=== PATIENT | female | born 1945 | race African-American/Black ===

== ENCOUNTER 2018-05-24 08:26 | Emergency (ER) | payer BC ==
[~2018-05-24] VITALS: Ht 154.9 cm; Wt 98.0 kg
[2018-05-24] MEDS ORDERED: FAMOTIDINE 20MG/2ML VIAL IV ONE (09:15)
[2018-05-24] MEDS ORDERED: DIPHENHYDRAMINE 50MG/ML VIAL IV ONE (09:15)
[2018-05-24] MEDS ORDERED: METHYLPREDNISOLONE SOD SUCC 125 MG/2 ML VIAL IV ONE (09:15)
[2018-05-24 10:54] VITALS: BP 140/84
== END 2018-05-24 10:55 | disposition home or self-care (01) ==
LOC: ER 08:26
DX: T78.1XXA Other adverse food reactions, not elsewhere classified, initial encounter (principal); I10 Essential (primary) hypertension; Z88.5 Allergy status to narcotic agent; Z88.0 Allergy status to penicillin; X58.XXXA Exposure to other specified factors, initial encounter
CPT/HCPCS: 96374; 96375; 99284; J1200; J2930; J3490; X7700

== ENCOUNTER 2018-12-27 18:02 | Emergency (ER) | payer BC ==
[~2018-12-27] VITALS: Ht 154.9 cm; Wt 100.0 kg
[2018-12-27] MEDS ORDERED: IBUPROFEN 600MG TABLET PO STA (19:13)
[2018-12-27 19:40] LABS: BASOPHILS % 0.8 % (0.0-2.0); EOSINOPHILS % 4.3 % (0.0-5.0); HEMATOCRIT. 38.6 % (36.0-48.0); HEMOGLOBIN. 12.8 g/dL (12.0-16.0); LYMPHOCYTES % 26.5 % (20.0-50.0); MEAN CORPUSCULAR HEMOGLOBIN 25.6 pg (28.0-32.0); MEAN CORPUSCULAR VOLUME 77.1 fL (81.0-99.0); MONOCYTES % 6.8 % (2.0-8.0); NEUTROPHILS % 61.6 % (40.0-76.0); PLATELET 181 x1000/uL (130-400); RED CELL DISTRIBUTION WIDTH 17.5 % (11.6-14.6)
[2018-12-27 19:45] LABS: CHLORIDE 105 mEq/L (98-107); PROTHROMBIN TIME 10.5 sec (9.1-11.1)
[2018-12-27 23:02] VITALS: BP 125/75
== END 2018-12-27 23:04 | disposition home or self-care (01) ==
LOC: ER 18:02
DX: R07.89 Other chest pain (principal); H26.9 Unspecified cataract; I10 Essential (primary) hypertension; Z88.0 Allergy status to penicillin; Z88.5 Allergy status to narcotic agent; Z90.710 Acquired absence of both cervix and uterus
CPT/HCPCS: 36415; 71045; 83880; 84484; 93005; 99284

== ENCOUNTER 2022-10-13 15:22 | Inpatient (IN) | payer BC ==
[~2022-10-13] VITALS: Ht 154.9 cm; Wt 98.0 kg
[2022-10-13 16:13] LABS: BASOPHILS % 0.5 % (0.0-2.0); EOSINOPHILS % 3.3 % (0.0-5.0); HEMATOCRIT. 38.5 % (36.0-48.0); LYMPHOCYTES % 16.6 % (20.0-50.0); MEAN CORPUSCULAR HEMOGLOBIN 26.4 pg (28.0-32.0); MEAN CORPUSCULAR VOLUME 77.9 fL (81.0-99.0); MEAN PLATELET VOLUME 7.9 fl (7.4-10.4); MONOCYTES % 6.6 % (2.0-8.0); PLATELET 188 x1000/uL (130-400); RED BLOOD CELL COUNT 4.95 mill/uL (4.2-5.4); RED CELL DISTRIBUTION WIDTH 16.9 % (11.6-14.6)
[2022-10-13 16:24] LABS: CHLORIDE 109 mEq/L (98-107)
[2022-10-13 16:26] LABS: *AMPHETAMINES SCREEN URINE NEGATIVE (NEGATIVE); *BARBITURATES SCREEN URINE NEGATIVE (NEGATIVE); *BENZODIAZEPINES SCREEN URINE NEGATIVE (NEGATIVE); *COCAINE SCREEN URINE NEGATIVE (NEGATIVE); CANNABINOID URINE SCREEN NEGATIVE (NEGATIVE); METHADONE URINE SCREEN NEGATIVE (NEGATIVE); OPIATES URINE SCREEN NEGATIVE (NEGATIVE); PHENCYCLIDINE URINE SCREEN NEGATIVE (NEGATIVE)
[2022-10-13 16:34] LABS: ETHANOL BLOOD < 10 mg/dL
[2022-10-14 10:00] VITALS: BP_SYST 146; BP_DIAS 26; BP_DIAS 76
[2022-10-14] MEDS ORDERED: ACETAMINOPHEN 325MG TABLET PO PRN (11:15)
[2022-10-14] MEDS ORDERED: IPRATROPIUM/ALBUTEROL 0.5-3(2.5)MG/3ML NEB HHN PRN (11:15)
[2022-10-14] MEDS ORDERED: CLONIDINE 0.1MG TABLET PO PRN (11:15)
[2022-10-14] MEDS ORDERED: ENOXAPARIN 40MG/0.4ML SYR SUBCUT SCH (11:15)
[2022-10-14] MEDS ORDERED: ALBUTEROL (0.083%) 2.5MG/3ML NEB HHN PRN (11:30)
[2022-10-14] MEDS ORDERED: IPRATROPIUM BROMIDE (0.02%) 0.5MG/2.5ML NEB HHN PRN (11:30)
[2022-10-14 12:00] VITALS: BP 128/69
[2022-10-14] MEDS: ENOXAPARIN 30MG/0.3ML SYR SUBCUT SCH ×2 (12:25→21:17)
[2022-10-14] MEDS ORDERED: REGADENOSON 0.4 MG/5 ML IV NR (14:00)
[2022-10-14 14:02] LABS: CLARITY URINE CLOUDY (CLEAR); COLOR URINE YELLOW (YELLOW)
[2022-10-14 14:03] LABS: KETONES URINE NEGATIVE (NEGATIVE); LEUKOCYTE ESTERASE URINE 2+ (NEGATIVE); NITRITE URINE NEGATIVE (NEGATIVE); OCCULT BLOOD URINE 2+ (NEGATIVE); PH URINE 5.5 (4.5-8.0); PROTEIN URINE 1+ (NEGATIVE); SPECIFIC GRAVITY URINE 1.015 (1.005-1.030); UROBILINOGEN URINE 0.2 E.U./dL (0.2-1.0)
[2022-10-14] MEDS: METOPROLOL TARTRATE 25MG TABLET PO SCH ×2 (14:45→21:09)
[2022-10-14 16:00] VITALS: BP_SYST 136; BP_SYST 145; BP_DIAS 70; BP_DIAS 79
[2022-10-14] MEDS: CEFTRIAXONE 1,000 MG in DEXTROSE 5% WATER 50 ML IV SCH (17:47)
[2022-10-14 20:36] VITALS: BP 129/62
[2022-10-15] VITALS: BP 135/70
[2022-10-15 00:32] LABS: CREATINE KINASE MB FRACTION < 1.0 ng/mL (0.5-3.6)
[2022-10-15 02:20] LABS: CREATINE KINASE MB FRACTION < 1.0 ng/mL (0.5-3.6)
[2022-10-15] MEDS: ONDANSETRON HCL 4MG/2ML INJ IV PRN ×2 (02:22→15:38)
[2022-10-15 04:00] VITALS: BP 113/67
[2022-10-15 07:12] LABS: BASOPHILS % 0.6 % (0.0-2.0); EOSINOPHILS % 3.2 % (0.0-5.0); HEMATOCRIT. 39.3 % (36.0-48.0); HEMOGLOBIN. 13.1 g/dL (12.0-16.0); LYMPHOCYTES % 19.6 % (20.0-50.0); MEAN CORPUSCULAR VOLUME 77.9 fL (81.0-99.0); MEAN PLATELET VOLUME 8.2 fl (7.4-10.4); MONOCYTES % 7.9 % (2.0-8.0); NEUTROPHILS % 68.7 % (40.0-76.0); PLATELET 189 x1000/uL (130-400); RED BLOOD CELL COUNT 5.05 mill/uL (4.2-5.4); RED CELL DISTRIBUTION WIDTH 16.7 % (11.6-14.6)
[2022-10-15 07:25] LABS: CHLORIDE 106 mEq/L (98-107)
[2022-10-15 07:38] LABS: HDL CHOLESTEROL 40 mg/dL (40-59); LDL CHOLESTEROL 85 mg/dL (5-100)
[2022-10-15 08:00] VITALS: BP 131/70
[2022-10-15] MEDS ORDERED: REGADENOSON 0.4 MG/5 ML IV ONE (09:13)
[2022-10-15] MEDS: ENOXAPARIN 30MG/0.3ML SYR SUBCUT SCH (09:28)
[2022-10-15 12:00] VITALS: BP 129/68
[2022-10-15] MEDS: METOPROLOL TARTRATE 25MG TABLET PO SCH (15:39)
[2022-10-15] MEDS ORDERED: LEVO-65 MT (15:56)
[2022-10-15 16:00] VITALS: BP 133/69
[2022-10-15 16:29] VITALS: BP 135/64
[2022-10-15] MEDS: CEFTRIAXONE 1,000 MG in DEXTROSE 5% WATER 50 ML IV SCH (17:00)
== END 2022-10-15 18:12 | disposition home or self-care (01) | DRG 206 ==
LOC: ER 15:22 → MICUSO 23:40 → 8WST 10-14 09:45
PROVIDERS: ADMIT Internal Medicine; ATTEND Internal Medicine
DX: M94.0 Chondrocostal junction syndrome [Tietze] (principal); Z68.41 Body mass index [BMI] 40.0-44.9, adult; N39.0 Urinary tract infection, site not specified; Z20.822 Contact with and (suspected) exposure to COVID-19; E66.9 Obesity, unspecified; I10 Essential (primary) hypertension; E11.9 Type 2 diabetes mellitus without complications; Z88.0 Allergy status to penicillin; Z88.8 Allergy status to other drugs, medicaments and biological substances; Z90.710 Acquired absence of both cervix and uterus
CPT/HCPCS: 36415; 71045; 78452; 80048; 80053; 80061; 80305; 80320; 81003; 82553; 83036; 83880; 84484; 85025; 85379; 87077; 87186; 87426; 93005; 93017; 99285; A9500; C1893; J0696; J1650; J2405; J2785; J7060; G0480

== ENCOUNTER 2024-06-20 14:01 | Emergency (ER) | payer MEDICARE, MEDICAID ==
[~2024-06-20] VITALS: Ht 152.4 cm; Wt 64.0 kg
[~2024-06-20 14:01] MED LIST: LEVO-65 MT
[2024-06-20 14:05] VITALS: O2SAT 98
[2024-06-20] MEDS: ONDANSETRON 4MG ODT PO NR (14:45)
[2024-06-20 15:24] LABS: BASOPHILS % 0.6 % (0.0-2.0); DIFFERENTIAL COMMENT 0; EOSINOPHILS % 4.2 % (0.0-5.0); HEMATOCRIT. 42.5 % (36.0-48.0); HEMOGLOBIN. 13.8 g/dL (12.0-16.0); LYMPHOCYTES % 24.4 % (20.0-50.0); MEAN CORPUSCULAR HEMOGLOBIN 25.7 pg (28.0-32.0); MEAN CORPUSCULAR HGB CONC 32.4 g/dL (31.0-37.0); MEAN CORPUSCULAR VOLUME 79.4 fL (81.0-99.0); MEAN PLATELET VOLUME 7.9 fl (7.4-10.4); MONOCYTES % 5.4 % (2.0-8.0); NEUTROPHILS % 65.4 % (40.0-76.0); PLATELET 197 x1000/uL (130-400); RED BLOOD CELL COUNT 5.35 mill/uL (4.2-5.4); RED CELL DISTRIBUTION WIDTH 17.3 % (11.6-14.6); WHITE BLOOD COUNT 7.6 x1000/uL (4.5-11.0)
[2024-06-20 15:29] LABS: CHLORIDE 107 mEq/L (98-107); POTASSIUM 3.4 mEq/L (3.5-5.1); SODIUM 142 mEq/L (136-145)
[2024-06-20 15:30] LABS: CALCIUM 9.6 mg/dL (8.7-10.4); CARBON DIOXIDE 28 mEq/L (21-32)
[2024-06-20 15:35] LABS: CREATININE 1.1 mg/dL (0.6-1.0); GLUCOSE 97 mg/dL (70-105); UREA NITROGEN BLOOD 16 mg/dL (9-23)
[2024-06-20 15:37] LABS: ALANINE AMINOTRANSFERASE 23 IU/L (10-49); ALBUMIN 4.4 g/dL (3.2-4.8); ASPARTATE AMINOTRANSFERASE 24 IU/L (<34); BILIRUBIN TOTAL 0.5 mg/dL (0.1-1.0); PROTEIN TOTAL 7.8 g/dL (6.0-8.3)
[2024-06-20 16:05] LABS: CLARITY URINE CLEAR (CLEAR); COLOR URINE YELLOW (YELLOW); GLUCOSE URINE NEGATIVE (NEGATIVE); KETONES URINE NEGATIVE (NEGATIVE); LEUKOCYTE ESTERASE URINE NEGATIVE (NEGATIVE); NITRITE URINE NEGATIVE (NEGATIVE); OCCULT BLOOD URINE NEGATIVE (NEGATIVE); PROTEIN URINE NEGATIVE (NEGATIVE); SPECIFIC GRAVITY URINE 1.016 (1.005-1.030); UROBILINOGEN URINE 0.2 E.U./dL (0.2-1.0)
[2024-06-20] MEDS ORDERED: DOCU-138 MT (16:42)
[2024-06-20] MEDS ORDERED: IBUP-2029 MT (16:42)
[2024-06-20 17:36] VITALS: BP 146/71; PULSE 68; RESP 18; TEMP 36.94740; O2SAT 97
== END 2024-06-20 17:40 | disposition home or self-care (01) ==
LOC: ER 14:55
DX: R10.2 Pelvic and perineal pain (principal); K59.00 Constipation, unspecified; I10 Essential (primary) hypertension; Z88.0 Allergy status to penicillin; Z88.5 Allergy status to narcotic agent; Z98.890 Other specified postprocedural states; Z90.710 Acquired absence of both cervix and uterus
CPT/HCPCS: 99283; 80053; 81003; 85025; 36415; Q0162

== ENCOUNTER 2025-09-06 14:05 | Inpatient (IN) | payer MEDICARE, MEDICAID ==
[~2025-09-06] VITALS: Ht 154.9 cm; Wt 90.7 kg
[~2025-09-06 14:05] MED LIST changes: +DOCU-138 MT; +IBUP-1455 MT
[2025-09-06 14:14] VITALS: O2SAT 96
[2025-09-06 14:52] LABS: BASOPHILS % 0.7 % (0.0-2.0); EOSINOPHILS % 2.5 % (0.0-5.0); HEMATOCRIT. 42.8 % (36.0-48.0); HEMOGLOBIN. 13.9 g/dL (12.0-16.0); LYMPHOCYTES % 15.5 % (20.0-50.0); MEAN PLATELET VOLUME 7.9 fl (7.4-10.4); MONOCYTES % 5.4 % (2.0-8.0); NEUTROPHILS % 75.9 % (40.0-76.0); PLATELET 192 x1000/uL (130-400); RED BLOOD CELL COUNT 5.25 mill/uL (4.2-5.4); RED CELL DISTRIBUTION WIDTH 15.7 % (11.6-14.6)
[2025-09-06 15:04] LABS: CREATININE 1.1 mg/dL (0.6-1.0); UREA NITROGEN BLOOD 12.0 mg/dL (9-23)
[2025-09-06 15:06] LABS: TROPONIN I HIGH SENSITIVITY < 4 ng/L (3.0-34)
[2025-09-06] MEDS: MORPHINE SULFATE 2 MG/ML INJ (NOT FOR IM USE) IV ONE (18:36)
[2025-09-06] MEDS: NITROGLYCERIN OINT 1GM/INCH UDPKT TD ONE (18:36)
[2025-09-06] MEDS: ASPIRIN 325MG TABLET PO ONE (19:02)
[2025-09-06 20:00] VITALS: BP 118/81; PULSE 85; RESP 18; TEMP 37.1; O2SAT 98
[2025-09-06 20:17] VITALS: BP 142/77; PULSE 73; RESP 26; TEMP 37.0296
[2025-09-06] MEDS ORDERED: MAGNESIUM/ALUMINUM HYDROXIDE/SIMETHICONE 30ML UDC PO PRN (21:15)
[2025-09-06] MEDS ORDERED: ONDANSETRON HCL 4MG/2ML INJ IV PRN (21:15)
[2025-09-06] MEDS ORDERED: NITROGLYCERIN 0.4MG TABLET SL SL PRN (21:15)
[2025-09-06] MEDS ORDERED: IPRATROPIUM/ALBUTEROL 0.5-3(2.5)MG/3ML NEB HHN PRN (21:15)
[2025-09-06] MEDS ORDERED: ACETAMINOPHEN 325MG TABLET PO PRN (21:15)
[2025-09-06] MEDS ORDERED: DOCUSATE SODIUM 100MG CAPSULE PO PRN (21:15)
[2025-09-06] MEDS ORDERED: GUAIFENESIN 200MG/10ML SUGAR FREE UDC PO PRN (21:15)
[2025-09-06] MEDS: AMLODIPINE 5MG TABLET PO SCH (21:15)
[2025-09-06] MEDS: ACETAMINOPHEN 325MG TABLET PO PRN (21:50)
[2025-09-06] MEDS ORDERED: AMLO5TAB88 MT (23:09)
[2025-09-06] MEDS ORDERED: TELM20TA8 MT (23:51)
[2025-09-07] VITALS: BP_SYST 148; BP_DIAS 8; BP_DIAS 87; PULSE 82; RESP 21; TEMP 36.8; O2SAT 98
[2025-09-07 03:45] LABS: CLARITY URINE CLOUDY (CLEAR); COLOR URINE YELLOW (YELLOW); GLUCOSE URINE NEGATIVE (NEGATIVE); KETONES URINE NEGATIVE (NEGATIVE); LEUKOCYTE ESTERASE URINE TRACE (NEGATIVE); NITRITE URINE POSITIVE (NEGATIVE); OCCULT BLOOD URINE NEGATIVE (NEGATIVE); PH URINE 5.5 (4.5-8.0); PROTEIN URINE NEGATIVE (NEGATIVE); SPECIFIC GRAVITY URINE 1.016 (1.005-1.030); UROBILINOGEN URINE 0.2 E.U./dL (0.2-1.0)
[2025-09-07 04:00] VITALS: BP 131/67; PULSE 67; RESP 12; TEMP 36.7; O2SAT 94
[2025-09-07 04:10] LABS: *AMPHETAMINES SCREEN URINE NEGATIVE (NEGATIVE); *BARBITURATES SCREEN URINE NEGATIVE (NEGATIVE); *BENZODIAZEPINES SCREEN URINE NEGATIVE (NEGATIVE); *COCAINE SCREEN URINE NEGATIVE (NEGATIVE); METHADONE URINE SCREEN NEGATIVE (NEGATIVE)
[2025-09-07 04:11] LABS: CANNABINOID URINE SCREEN NEGATIVE (NEGATIVE); ECSTASY MDMA SCREEN URINE NEGATIVE (NEGATIVE); OPIATES URINE SCREEN PRESUMPTIVE POSITIVE (NEGATIVE); PHENCYCLIDINE URINE SCREEN NEGATIVE (NEGATIVE)
[2025-09-07 04:43] LABS: SQUAMOUS EPITHELIAL CELL URINE 1+ /lpf (RARE/1+)
[2025-09-07 04:45] LABS: RBC URINE 0-2 /hpf (0-2)
[2025-09-07 04:47] LABS: BACTERIA URINE 3+
[2025-09-07] MEDS: SODIUM CHLORIDE 0.9% 1,000 ML IV SCH (06:25)
[2025-09-07 07:17] LABS: TROPONIN I HIGH SENSITIVITY < 4 ng/L (3.0-34)
[2025-09-07 07:18] LABS: CREATININE 1.2 mg/dL (0.6-1.0)
[2025-09-07 07:19] LABS: LDL CHOLESTEROL 111 mg/dL (5-100); TRIGLYCERIDE 135 mg/dL (0-150); UREA NITROGEN BLOOD 12 mg/dL (9-23)
[2025-09-07 07:20] LABS: PHOSPHORUS 3.2 mg/dL (2.5-4.9); T4 FREE 1.24 ng/dL (0.89-1.76)
[2025-09-07 08:00] VITALS: BP 116/60; PULSE 80; RESP 17; TEMP 36.3; O2SAT 96
[2025-09-07] MEDS: CEFTRIAXONE 1GM/50ML 50 ML IV SCH (10:17)
[2025-09-07] MEDS: ENOXAPARIN 40MG/0.4ML SYR SUBCUT SCH (10:18)
[2025-09-07] MEDS: PANTOPRAZOLE SODIUM 40 MG/VIAL IV SCH (10:18)
[2025-09-07] MEDS: LOSARTAN 25 MG TABLET PO SCH (10:19)
[2025-09-07] MEDS: ASPIRIN 81MG TABLET PO SCH (10:32)
[2025-09-07 12:00] VITALS: BP 154/97; PULSE 96; RESP 17; TEMP 36.7; O2SAT 96
[2025-09-07] MEDS: PANTOPRAZOLE 40MG DR TABLET PO SCH (12:45)
[2025-09-07] MEDS ORDERED: DEXTROSE 50% WATER 50ML SYRINGE IV PRN (12:45)
[2025-09-07] MEDS: KETOROLAC 15MG/ML VIAL IV NR (12:45)
[2025-09-07] MEDS: LIDOCAINE 5% PATCH TOP SCH (13:00)
[2025-09-07 16:00] VITALS: BP 160/127; PULSE 77; RESP 19; TEMP 36.8; O2SAT 96
[2025-09-07] MEDS: BLOOD SUGAR DIAGNOSTIC STRIP TEST SCH (16:47)
[2025-09-07] MEDS: INSULIN LISPRO 100 UNITS/ML SUBCUT SCH (16:48)
[2025-09-07] MEDS: CLONIDINE 0.1MG TABLET PO PRN (16:51)
[2025-09-07 20:00] VITALS: PULSE 75; RESP 20; TEMP 36.8; O2SAT 98
[2025-09-07] MEDS: KETOROLAC 15MG/ML VIAL IV PRN (21:04)
[2025-09-07] MEDS: ATORVASTATIN CALCIUM 20MG TABLET PO SCH (21:05)
[2025-09-08] VITALS: PULSE 72; RESP 18; TEMP 36.8; O2SAT 97
[2025-09-08 04:00] VITALS: PULSE 86; RESP 20; TEMP 36.4; O2SAT 98
[2025-09-08 07:07] LABS: CREATININE 1.1 mg/dL (0.6-1.0); UREA NITROGEN BLOOD 13 mg/dL (9-23)
[2025-09-08 07:09] LABS: BASOPHILS % 0.4 % (0.0-2.0); EOSINOPHILS % 3.6 % (0.0-5.0); HEMATOCRIT. 38.5 % (36.0-48.0); HEMOGLOBIN. 12.3 g/dL (12.0-16.0); LYMPHOCYTES % 26.7 % (20.0-50.0); MEAN PLATELET VOLUME 8.4 fl (7.4-10.4); MONOCYTES % 7.6 % (2.0-8.0); NEUTROPHILS % 61.7 % (40.0-76.0); PHOSPHORUS 2.8 mg/dL (2.5-4.9); PLATELET 159 x1000/uL (130-400); RED BLOOD CELL COUNT 4.67 mill/uL (4.2-5.4); RED CELL DISTRIBUTION WIDTH 15.5 % (11.6-14.6)
[2025-09-08 08:00] VITALS: BP 133/68; PULSE 75; RESP 16; TEMP 36.6; O2SAT 97
[2025-09-08 12:00] VITALS: BP 128/71; PULSE 84; RESP 16; TEMP 36.5; O2SAT 96
[2025-09-08] MEDS ORDERED: ATOR20TA65 MT (13:45)
[2025-09-08] MEDS ORDERED: SULF1TAB48 MT (14:07)
[2025-09-08] MEDS ORDERED: ASPI-1497 MT (14:15)
[2025-09-08 16:07] VITALS: BP 130/73; PULSE 84; RESP 17; TEMP 97.9
[2025-09-09] MEDS ORDERED: FAMOTIDINE 20MG TABLET PO SCH (09:00)
== END 2025-09-08 18:26 | disposition home health service (06) | DRG 311 ==
LOC: ER 14:05 → 3WST 18:29 → EDBEDREQTM 18:35 → EDBEDREQ 18:35
PROVIDERS: ADMIT Hospitalist; ATTEND Hospitalist
DX: I20.89 Other forms of angina pectoris (principal); N17.9 Acute kidney failure, unspecified; N39.0 Urinary tract infection, site not specified; E66.01 Morbid (severe) obesity due to excess calories; E11.9 Type 2 diabetes mellitus without complications; I10 Essential (primary) hypertension; M94.0 Chondrocostal junction syndrome [Tietze]; Z68.37 Body mass index [BMI] 37.0-37.9, adult; E78.5 Hyperlipidemia, unspecified; M54.12 Radiculopathy, cervical region; R32 Unspecified urinary incontinence; Z79.899 Other long term (current) drug therapy; Z87.440 Personal history of urinary (tract) infections; Z88.0 Allergy status to penicillin; Z88.5 Allergy status to narcotic agent
CPT/HCPCS: 36415; 71045; 80048; 80061; 80305; 81003; 82040; 82962; 83036; 83735; 83880; 84100; 84439; 84443; 84484; 85025; 93005; 93306; 99285; A4606; J0696; J1650; J1885; J2270; J2470; J7030